=== PATIENT | female | born 1960 | race Caucasian/White ===

== ENCOUNTER 2017-04-30 08:44 | Day surgery (SDC) | payer OTHER ==
[~2017-04-30] VITALS: Ht 160 cm; Wt 70.0 kg
[2017-04-30 09:11] VITALS: BP 90/62
[2017-04-30] MEDS: SODIUM CHLORIDE 0.9% 1000ML 1,000 ML IV ONE (09:25)
[2017-04-30] MEDS ORDERED: PROPOFOL 10 MG/ML 20ML VIAL IV ONE ×2 (10:07→10:08)
[2017-04-30] MEDS ORDERED: LIDOCAINE HCL 1% 20 ML VIAL ONE (10:08)
[2017-04-30 10:29] VITALS: BP 80/44
== END 2017-04-30 11:15 | disposition home or self-care (01) ==
LOC: DAH 08:44
PROVIDERS: ATTEND Internal Medicine Gastroenterology
DX: Z12.11 Encounter for screening for malignant neoplasm of colon (principal); Z68.30 Body mass index [BMI] 30.0-30.9, adult
CPT/HCPCS: A4606; J2704; J7030